=== PATIENT | female | born 1945 | race Caucasian/White ===

== ENCOUNTER 2016-06-27 06:33 | Observation (INO) ==
[2016-06-27] MEDS ORDERED: Lidocaine -MPF 1% 2 ML VIAL ID ONE (06:53)
[2016-06-27] MEDS ORDERED: cefOXitin 2,000 MG in D5% in Water (Mini-Bag+) 100 ML IVPB ONE (06:53)
[2016-06-27] MEDS ORDERED: Famotidine 20 MG/2 ML VIAL IVP ONE (07:15)
[2016-06-27] MEDS ORDERED: Metoclopramide 10 MG/2 ML VIAL IVP ONE (07:15)
[2016-06-27] MEDS ORDERED: *HR* Labetalol 100 MG/20 ML MDV IVP PRN ×2 (07:15→12:21)
[2016-06-27] MEDS ORDERED: *HR* Promethazine 25 MG/ML VIAL IVP PRN ×2 (07:15→12:21)
[2016-06-27] MEDS ORDERED: Scopolamine Patch 1.5 MG PATCH.TD72 TD ONE (07:15)
[2016-06-27] MEDS ORDERED: Acetaminophen IV 1,000 MG/100 ML INFUS..BTL IVPB ONE ×2 (07:17→12:21)
[2016-06-27] MEDS ORDERED: Gabapentin 300 MG CAPSULE PO STA (07:17)
[2016-06-27] MEDS ORDERED: Propofol 500 MG/50 ML INFUS..BTL ONE ×2 (07:17→09:31)
[2016-06-27] MEDS ORDERED: Lidocaine Jelly 2% 30 ML JEL..ML. ONE (07:20)
--- NOTE | 2016-06-27 07:20 | Anesthesia Evaluation PreOp ---
Date of Encounter: 06/27/16 Time of Encounter: 07:18 - Past History Planned Operation: Transanal excision rectal Mass Cardiac History: HTN (maintained on Norvasc, ATenolol, Lisinopril), Hyperlipidemia (maintained on Simvastatin) Pulmonary History: Denies Any Significant HX COUNTERINTELLIGENCE/HUMINT SPECIALIST History: Denies Any Significant HX Other Medical History: Denies Any Significant HX, Other (Cataracts) Anesthesia History: No Prior Anesthetic Complications, Past Anesthesia (Hyster, R-wrist ORIF, Cataracts), Problems (PONV) Medications and Allergies Amlodipine Besylate 10 mg PO DAILY 05/17/16 [History] Atenolol [Tenormin] 50 mg PO DAILY 05/17/16 [History] Diclofenac Potassium 50 mg PO BID 05/17/16 [History] Lisinopril [Zestril] 10 mg PO DAILY 05/17/16 [History] Simvastatin [Zocor] 20 mg PO DAILY 05/17/16 [History] Allergies hydrochlorothiazide [From Dyazide] Adverse Reaction (Verified 06/27/16 07:13) See Comments per patient unknown reaction meperidine [From Demerol] Adverse Reaction (Verified 06/27/16 07:13) Flushing Triamterene [From Dyazide] Adverse Reaction (Verified 06/27/16 07:13) See Comments per patient unknown reaction - Meds/Allergy Pre-op Review Medications Reviewed: Yes Allergies Reviewed: Yes Beta Blockers on Current Med List: Yes (Atenolol) If Beta Blockers taken, Date/Time (Last Dose taken): 06/26/16 @ 1999 Anesthesia Results - Labs Laboratory Tests 05/17/16 06/18/16 06/18/16 11:30 08:20 08:20 WBC 7.6 Hgb 14.0 Hct 42.5 Plt Count 318 Sodium 140 Potassium 3.8 Chloride 108 Carbon Dioxide 25 BUN 11 Creatinine 0.81 Est GFR (Non-Af Amer) > 60 - Imaging EKG: image reviewed Anesthesia Exam O2 Sat Height 1.6 m Height 1.6 m Weight 89.358 kg Weight 89.358 kg O2 Sat by Pulse Oximetry 94 Vital Signs Temp Pulse Resp BP Pulse Ox 97.6 F 52 18 102/60 94 06/27/16 07:09 06/27/16 07:09 06/27/16 07:09 06/27/16 07:09 06/27/16 07:09 Height: 5'3 Weight: 197# BMI = 35 NPO (# of Hours): MNOc - HEENT Pupil (Motor): Pupils equal, EOMI Mallampati: II Teeth: Edentulous Denture Type: Upper: Complete, Lower: Complete Oral Opening: Greater than 3 - COUNTERINTELLIGENCE/HUMINT SPECIALIST LOC: Oriented COUNTERINTELLIGENCE/HUMINT SPECIALIST Motor: Normal RUE, Normal LUE, Normal RLE, Normal LLE, Normal Face COUNTERINTELLIGENCE/HUMINT SPECIALIST Sensory: Normal: RUE, LUE, RLE, LLE, Face - Cardiac Rhythm: Regular Murmur: None - Pulmonary Breath Sounds: bilateral Clear Respiratory Effort: Symmetrical Anesthesia Assess/Plan ASA Score: 3 (HTN, Chol, Cataracts, OBesity) Modified Charli Scale for Level of Consciousness: Cooperative, oriented, and tranquil Anesthetic Plan: General Monitoring Plan: Standard Monitors Recovery Plan: PACU Anes Supervising Prov Stmt: Pt seen/evaluated, R&B discussed, questions answered and consent obtained. Damon Diaz MD
[2016-06-27] MEDS ORDERED: Lidocaine -MPF 2% 2 ML VIAL ONE (07:28)
[2016-06-27] MEDS ORDERED: *HR* Propofol 200 MG/20 ML VIAL IVP ONE ×4 (07:28→09:12)
[2016-06-27] MEDS ORDERED: *HR* FentaNYL (PF) 100 MCG/2 ML VIAL ONE (07:29)
[2016-06-27] MEDS ORDERED: Dexamethasone 4 MG/ML VIAL ONE (07:30)
[2016-06-27] MEDS ORDERED: Ondansetron 4 MG/2 ML VIAL ONE (07:30)
[2016-06-27] MEDS: Ringers Solution, Lactated 1,000 ML IVC SCH ×2 (07:41→10:43)
--- NOTE | 2016-06-27 08:15 | History & Physical Report ---
Date of Encounter: 06/27/16 Time of Encounter: 08:14 24 Hour HP Update - Instructions Instructions: If the History and Physical is less than 30 days old and was completed prior to A.M. admission and or procedure and has NOT been updated on calendar day of procedure please complete this update prior to performing procedure. - Update Patient reports changes in Medical Condition: No Changes in examination, assessment, or condition: No Changes in Medication: No Preop tests/diagnostics Reviewed: Yes Surgery Remains Indicated: Yes Consent for Planned Operative Procedure(s) Verified: Yes - Pre-Operative Checklist Preoperative Checklist Indicated: Yes Prophylactic Antibiotic Ordered: Yes Home Medications Include Beta Carly: Yes Beta Carly Taken Today (Day of Surgery): Yes
[2016-06-27] MEDS ORDERED: *HR* Succinylcholine 200 MG/10 ML VIAL IVP ONE (08:34)
--- NOTE | 2016-06-27 09:50 | Operative Note ---
Date of procedure: 06/27/16 Pre-op diagnosis: Rectal mass Post-op diagnosis: same Procedure: Transanal excision of rectal polyp from the dentate line to the proximal rectal valve Anesthesia: CYNTHIA Surgeon: Burt Pearson Estimated blood loss (cc): 150 Specimen: Rectal mass Condition: stable Disposition: same day Procedure in Detail: After informed consent, the patient was taken to the operating room and placed in a supine position. After adequate sedation and anesthesia the patient was moved onto the operating room table and placed in lithotomy position. She had a low-lying rectal mass that was in the posterior left lateral quadrant of the rectum. The mass was easily visible from the anal canal however it extended to the proximal rectal valve. The mass was on a broad-based stalk of approximately 5-6 cm. This area was removed with electrocautery. Once it was fully excised was passed off the table and sent to pathology. The rectal mucosa was closed inferiorly. However I was unable to approximate the edges cephalad. However the mesorectum is still intact. The anal canal was injected with half percent Marcaine times 20 mL's. The patient was extubated in the operating room and sent to recovery in stable condition. She will be admitted for overnight observation.
[2016-06-27] MEDS: *HR* HYDROmorphone (PF) 1 MG/ML SYRINGE IVP PRN ×2 (10:58→11:14)
[2016-06-27] MEDS ORDERED: Naloxone 0.4 MG/ML INJ IVP PRN (12:21)
[2016-06-27] MEDS ORDERED: Ringers Solution, Lactated 1,000 ML IVC SCH (12:21)
[2016-06-27] MEDS ORDERED: *HR* HYDROmorphone (PF) 1 MG/ML SYRINGE IVP PRN (12:21)
--- NOTE | 2016-06-27 13:42 | Anesthesia Evaluation Post Op ---
Date of Encounter: 06/27/16 Time of Encounter: 11:35 - Vital Signs Vital Signs: Vital Signs/O2 Sat/Glucose, Most Current Temp Pulse Resp BP Pulse Ox 06/27/16 11:24 98.0 F 52 16 94/53 94 06/27/16 11:14 48 16 93/49 95 06/27/16 11:04 51 16 91/54 93 06/27/16 10:54 98.3 F 51 16 91/53 96 06/27/16 10:44 49 16 101/57 95 06/27/16 10:34 53 16 111/78 96 06/27/16 10:24 98.1 F 52 16 108/66 96 06/27/16 10:14 54 14 92/45 96 06/27/16 10:04 58 12 109/71 91 06/27/16 09:54 97.8 F 55 12 91/55 89 - Lungs Lungs: Clear Ascult./Percussion - Airway Airway: Non-obstructed - Cardiovascular Regular Rate - Mental Status Mental Status: Alert & Oriented, Answers Appropriately - Pain Pain Scale: 5 Pain Scale used: Numeric (1 - 10) - Nausea Vomiting Nausea Vomiting: Not Present - Hydration Hydration: Ice chips, Has not voided - Discharge PostOp Status: Transfer Patient to floor Anes Supervising Prov Stmt: Pt seen/evaluated, VSS And pt has met criteria for discharge to floor. - MD Joe
[2016-06-27] MEDS: Piperacillin/Tazobactam 3.375 GM in D5% in Water (Mini-Bag+) 100 ML IVPB SCH ×2 (15:10→23:28)
[2016-06-27] MEDS: D5% in 0.45% NACL 1,000 ML IVC SCH (15:11)
[2016-06-28 04:45] LABS: Basophils % 0.1 %; Hematocrit 32.4 % (35.3-44.9); Hemoglobin 10.8 g/dL (11.5-15.4); Immature Granulocytes % 0.5 % (0-4); Lymphocytes # 1.1 K/mcL (0.6-4.6); Lymphocytes % 5.8 %; Mean Corpuscular HGB Conc 33.3 g/dL (31.6-35.5); Mean Corpuscular Hemoglobin 28.9 pg (28.0-33.3); Mean Corpuscular Volume 86.6 fL (83.0-100.0); Mean Platelet Volume 10.4 fL (9.4-12.4); Monocytes # 0.9 K/mcL (0.0-1.3); Monocytes % 4.9 %; Neutrophils # 16.3 K/mcL (1.6-8.9); Platelet Count 260 K/mcL (140-400); Red Blood Count 3.74 M/mcL (3.82-4.97); Red Cell Distribution Width 12.6 % (11.5-14.5); Segmented Neutrophils % 88.7 %
[2016-06-28 04:51] LABS: BUN/Creatinine Ratio 14 (6-26); Blood Urea Nitrogen 13 mg/dL (7-20); Calcium 10.1 mg/dL (8.6-10.8); Carbon Dioxide 23 mEq/L (19-29); Chloride 105 mEq/L (98-109); Glucose 134 mg/dL (70-99); Osmolality,Calculated 288 (280-300); Potassium 3.9 mEq/L (3.5-4.5); Sodium 138 mEq/L (136-145); eGFR For African Americans > 60 (> 60); eGFR For Non-African Americans 60 (> 60)
[2016-06-28] MEDS: Piperacillin/Tazobactam 3.375 GM in D5% in Water (Mini-Bag+) 100 ML IVPB SCH ×3 (09:24→23:49)
--- NOTE | 2016-06-28 14:59 | Discharge Summary ---
Date of Encounter: 06/29/16 Time of Encounter: 14:57 - Discharge Diagnosis (1) Rectal mass Priority: Primary Status: Chronic - Discharge Medications Prescriptions: Amoxicillin/Clavulanate [Augmentin] 875 mg PO BIDWM #20 tablet Home Medications: Amlodipine Besylate 10 mg PO DAILY 05/17/16 [History] Atenolol [Tenormin] 50 mg PO DAILY 05/17/16 [History] Diclofenac Potassium 50 mg PO BID 05/17/16 [History] Lisinopril [Zestril] 10 mg PO DAILY 05/17/16 [History] Simvastatin [Zocor] 20 mg PO DAILY 05/17/16 [History] HYDROcodone/Acet 5/325 mg [[place] 5-325 mg] 1 tab PO Q6H PRN #20 tab 06/28/16 [Rx ] Amoxicillin/Clavulanate [Augmentin] 875 mg PO BIDWM #20 tablet 06/29/16 [Rx] Allergies/Adverse Reactions: Allergies hydrochlorothiazide [From Dyazide] Adverse Reaction (Verified 06/27/16 07:13) See Comments per patient unknown reaction meperidine [From Demerol] Adverse Reaction (Verified 06/27/16 07:13) Flushing Triamterene [From Dyazide] Adverse Reaction (Verified 06/27/16 07:13) See Comments per patient unknown reaction General Surgery Exam Initial Vital Signs Temp Pulse Resp BP Pulse Ox 97.6 F 52 18 102/60 94 06/27/16 07:09 06/27/16 07:09 06/27/16 07:09 06/27/16 07:09 06/27/16 07:09 - General physical appearance well developed, well nourished, no distress - Eyes normal ocular movement - ENT normal mucosa, atraumatic, normocephalic - Neck trachea midline - Respiratory normal respiratory effort, clear to auscultation - Cardiovascular Cardiovascular exam: Present: RRR, 15, 16 - Abdomen Abdomen general surgery: Present: bowel sounds present, soft, non tender - Rectum Rectum: Present: other (serousang. drainage noted on surgical dressing (removed) ) Hemorrhoids: Present: External - Integumentary Integumentary general surgery: Present: warm and dry - Neurologic Present: CN 2-12 grossly intact - Musculoskeletal Present: normal gait, normal posture - Psychiatric Psychiatric general surgery: Present: appropriate, oriented to person, oriented to place, oriented to time, speech is normal, memory intact Date of admission: 06/27/16 Primary care physician: Rm Levine MD Discharging clinician: Burt Pearson (Otoniel Marsh) Anticipated date of discharge: 06/28/16 - Patient Status Disposition: Home, Self-Care Condition: Good Functional capacity at discharge: independent ambulation Overall status at discharge: patient is progressing back to baseline - Discharge Instructions Follow Up With: Rm Levine MD [Primary Care Provider] - Natacha Marsh CNP [Advanced Practice Nurse] - 07/12/16 8:45 am (surgery follow-up) Burt Pearson DO [Partnered Physician] - 07/03/16 4:40 pm (surgery follow-up) Additional Instructions: #1 may shower, no tub bath for [address] sanitary pad in undergarment twice daily and as needed if soiled, wash with soap and water in the shower #3 no lifting, pushing, pulling more than 15 pounds for the next 2 weeks #4 no driving until off narcotics for 24 hours and able to safely react in the car #5 may climb stairs - Diet and Activity Activity: increase activity as tolerated Diet: other (advance to soft diet as tolerated and continue soft diet for the next 2 weeks) - Hospital Course Hospital course: Ms. Johnson is a 70 year old female POD #2 from Transanal excision of rectal polyp from the dentate line to the proximal rectal valve with Dr. Pearson. She is tolerating liquids without nausea/vomiting. Vital signs are stable and she is afebrile. Her pain is well controlled. She is voiding and ambulating without difficulty. We will begin discharge planning and plan for outpatient follow-up in the next 10-14 days. - Time Spent with Patient Total time spent providing and/or coordinating discharge services: Less than 30 minutes Labs on day of discharge: Labs from last 24 hours 06/28/16 06/28/16 03:46 03:46 WBC 18.4 H RBC 3.74 L Hgb 10.8 L Hct 32.4 L MCV 86.6 MCH 28.9 MCHC 33.3 RDW 12.6 Plt Count 260 MPV 10.4 Immature Gran % 0.5 Seg Neutrophils % 88.7 Lymphocytes % 5.8 Monocytes % 4.9 Eosinophils % 0.0 Basophils % 0.1 Neutrophils # 16.3 H Lymphocytes # 1.1 Monocytes # 0.9 Eosinophils # 0.0 Basophils # 0.0 Sodium 138 Potassium 3.9 Chloride 105 Carbon Dioxide 23 BUN 13 Creatinine 0.93 Est GFR ( Amer) > 60 Est GFR (Non-Af Amer) 60 BUN/Creatinine Ratio 14 Glucose 134 H Calculated Osmolality 288 Calcium 10.1 - Attending Attestation I examined this patient and my medical decision-making was reviewed with the ACCOUNTS PAYABLE ASSOCIATE/PA/Advanced Practice Nurse/Resident Physician. I agree with the documented findings, disposition and treatment plan as described except to the extent set forth below.
--- NOTE | 2016-06-28 15:40 | General Surgery Progress Note ---
Date of Encounter: 06/28/16 Time of Encounter: 15:00 - Assessment and Plan (1) Rectal mass Current Visit: Yes Status: Chronic POD #1 Transanal excision of rectal polyp from the dentate line to the proximal rectal valve with Dr. Pearson Continue clear liquids Continue IV antibiotics- Zosyn Pain control/supportive care Ambulate Repeat CBC in the am (2) DVT prophylaxis Current Visit: Yes Status: Acute EPCDs to bilateral lower extremities for DVT prophylaxis Subjective Patient reports: still having pain (expected surgical discomfort), tolerating liquids well, voiding w/o difficulty, no flatus, no bowel movement, blood in stool (drainage noted on surgical dressing), afebrile (Tmax 99.7) Objective Vital Signs - Last 8 Hours Temp Pulse Resp BP Pulse Ox 06/28/16 15:05 98.4 F 83 14 119/65 94 06/28/16 11:20 98.4 F 74 14 101/58 93 06/28/16 09:20 92 Intake and Output 06/27/16 06/28/16 06/28/16 23:59 07:59 15:59 Intake Total 100 / 100 100 / 100 940 / 940 Balance 100 / 100 100 / 100 940 / 940 Intake: IV Fluids 100 / 100 100 / 100 100 / 100 Zosyn 3.375 GM In 100 / 100 100 / 100 100 / 100 Dextrose 5% (Minibag+) 100 ML 100 ML @ 25 mls/hr IVPB Q8HR [facility] Rx#: [id number] Oral 840 / 840 Other: Meal Lunch Percent of Meal Consumed 100% # Voids 2 1 Weight 88.6 kg Patient Weight 06/28/16 23:59 Weight 88.6 kg - General physical appearance well developed, well nourished, no distress - Eyes normal ocular movement - ENT normal mucosa, atraumatic, normocephalic - Neck Neck exam: trachea midline - Respiratory normal respiratory effort, clear to auscultation - Cardiovascular Cardiovascular exam: Present: RRR - Abdomen Abdomen: Present: bowel sounds present, soft, tender Abdominal Tenderness: suprapubic - Rectum other (blood tinged drainage noted on surgical dressing) - Neurologic CN 2-12 grossly intact - Musculoskeletal normal gait, normal posture - Psychiatric oriented to time, oriented to person, oriented to place, speech is normal, memory intact - Labs 06/28/16 03:46 06/28/16 03:46 Diabetes panel 06/28/16 Range/Units 03:46 Sodium 138 (136-145) mEq/L Potassium 3.9 (3.5-4.5) mEq/L Chloride 105 (98-109) mEq/L Carbon Dioxide 23 (19-29) mEq/L BUN 13 (7-20) mg/dL Creatinine 0.93 (0.57-1.11) mg/dL Glucose 134 H (70-99) mg/dL Calcium 10.1 (8.6-10.8) mg/dL Calcium panel 06/28/16 Range/Units 03:46 Calcium 10.1 (8.6-10.8) mg/dL Pituitary panel 06/28/16 Range/Units 03:46 Sodium 138 (136-145) mEq/L Potassium 3.9 (3.5-4.5) mEq/L Chloride 105 (98-109) mEq/L Carbon Dioxide 23 (19-29) mEq/L BUN 13 (7-20) mg/dL Creatinine 0.93 (0.57-1.11) mg/dL Glucose 134 H (70-99) mg/dL Calcium 10.1 (8.6-10.8) mg/dL Adrenal panel 06/28/16 Range/Units 03:46 Sodium 138 (136-145) mEq/L Potassium 3.9 (3.5-4.5) mEq/L Chloride 105 (98-109) mEq/L Carbon Dioxide 23 (19-29) mEq/L BUN 13 (7-20) mg/dL Creatinine 0.93 (0.57-1.11) mg/dL Glucose 134 H (70-99) mg/dL Calcium 10.1 (8.6-10.8) mg/dL - VTE Documentation of Mechanical Device: Intermittent pneumatic compression device Consult Discharge Plan - Plan Additional Instructions: #1 may shower, no tub bath for [address] sanitary pad in undergarment twice daily and as needed if soiled, wash with soap and water in the shower #3 no lifting, pushing, pulling more than 15 pounds for the next 2 weeks #4 no driving until off narcotics for 24 hours and able to safely react in the car #5 may climb stairs Referrals: Rm Levine MD [Primary Care Provider] - Natacha Marsh ELECTRICIAN HELPER [Advanced Practice Nurse] - 07/12/16 8:45 am (surgery follow-up) Prescriptions: HYDROcodone/Acet 5/325 mg [[place] 5-325 mg] 1 tab PO Q6H PRN #20 tab PRN Reason: Pain
[2016-06-28] MEDS: D5% in 0.45% NACL 1,000 ML IVC SCH ×2 (16:19→16:20)
[2016-06-28] MEDS ORDERED: Mag Hydrox/Al Hydrox/Simeth 30 ML UDC PO PRN (19:51)
[2016-06-28] MEDS ORDERED: *HR* HYDROmorphone (PF) 1 MG/ML SYRINGE IVP PRN (19:51)
[2016-06-29 03:21] LABS: Basophils % 0.2 %; Hematocrit 30.4 % (35.3-44.9); Hemoglobin 9.8 g/dL (11.5-15.4); Immature Granulocytes % 0.5 % (0-4); Lymphocytes # 1.3 K/mcL (0.6-4.6); Lymphocytes % 10.8 %; Mean Corpuscular HGB Conc 32.2 g/dL (31.6-35.5); Mean Corpuscular Hemoglobin 27.9 pg (28.0-33.3); Mean Corpuscular Volume 86.6 fL (83.0-100.0); Mean Platelet Volume 10.1 fL (9.4-12.4); Monocytes # 0.7 K/mcL (0.0-1.3); Monocytes % 6.1 %; Neutrophils # 9.8 K/mcL (1.6-8.9); Platelet Count 222 K/mcL (140-400); Red Blood Count 3.51 M/mcL (3.82-4.97); Red Cell Distribution Width 12.7 % (11.5-14.5); Segmented Neutrophils % 82.4 %
[2016-06-29] MEDS: Piperacillin/Tazobactam 3.375 GM in D5% in Water (Mini-Bag+) 100 ML IVPB SCH (08:50)
[2016-06-29] MEDS ORDERED: Pantoprazole 40 MG VIAL IVP SCH (09:00)
[2016-06-29 10:59] VITALS: BP 116/55
== END 2016-06-29 12:51 | disposition home or self-care (01) ==
LOC: 3BNU 06:33 → SAMDAY 06:33 → 3BNU 12:04
PROVIDERS: ADMIT Surgery; ATTEND Surgery